=== PATIENT | male | born 1975 | race African-American/Black ===

== ENCOUNTER → 2018-09-28 | Outpatient (CLI) | payer BC, OTHER ==
[~2018-09-28] MED LIST: ACETAMINOPHEN-1 EAC1; AMLODIPINE BESY10 MG PO; AMOXICILLIN 50500 M1 PO; ASPIRIN325 PO; BACTRIM DS TAB1 EACH PO; CLEOCIN HCL150 MG PO; CLEOCIN HCL300 MG PO; GLUCOPHAGE XR750 MG PO; HYDROCHLOROTH12.5 M1 PO; HYDROCHLOROTHIA25 M1 PO; HYDROCODONE-AP1 EAC6 PO; IBUPROFEN 800800 M1 PO; K-DUR 20 MEQ T20 MEQ PO; LIPITOR20 MG PO; LISINOPRIL20 MG PO; LISINOPRIL40 MG PO; NORCO 5-325 TA1 EACH PO; TOPROL XL50 MG PO; ZESTORETIC 20-1 EAC3 PO
== END ==
LOC: MRI 12:08
DX: M50.31 Other cervical disc degeneration, high cervical region (principal); M50.21 Other cervical disc displacement, high cervical region; M48.02 Spinal stenosis, cervical region

== ENCOUNTER → 2018-10-01 | Outpatient (CLI) | payer BC, OTHER | LOC: RAD 15:06 | DX: M92.52 Juvenile osteochondrosis of tibia tubercle (principal); M92.51 Juvenile osteochondrosis of proximal tibia ==